=== PATIENT | female | born 1955 | race Caucasian/White ===

== ENCOUNTER → 2023-09-03 14:46 | Outpatient (REF) | payer OTHER, SELFPAY | LOC: PAVMRI 14:46 | PROVIDERS: ATTENDING PHYSICIAN Physician Assistant; FAMILY PHYSICIAN Internal Medicine | DX: M25.551 Pain in right hip (principal); M54.50 Low back pain, unspecified | CPT/HCPCS: 72148; 73721 ==

== ENCOUNTER → 2024-06-28 06:48 | Outpatient (REF) | payer OTHER, SELFPAY | LOC: PAVMRI 06:48 | PROVIDERS: ATTENDING PHYSICIAN Physician Assistant; FAMILY PHYSICIAN Internal Medicine; REFERRING PHYSICIAN Physician Assistant Medical | DX: M25.561 Pain in right knee (principal) | CPT/HCPCS: 72148; 73721 ==

== ENCOUNTER 2024-12-15 06:29 | Day surgery (SDC) | payer OTHER, SELFPAY ==
[2024-12-02 08:58] LABS: Hematocrit 37.2 % (37.0-47.0); Hemoglobin 12.5 g/dL (12.0-16.0); Mean Corp Hgb Conc. 33.6 g/dL (33.0-37.0); Mean Corpuscular Hgb 30.9 pg (27.0-31.0); Mean Corpuscular Volume 92.1 fL (81.0-99.0); Mean Platelet Volume 11.1 fL (7.4-10.4); Platelet Count 363 10^3/uL (130-400); Red Blood Cell Count 4.04 10^6/uL (4.20-5.40); Red Cell Dist. Width 13.5 % (11.5-14.5); White Blood Cell Count 6.8 10^3/uL (4.8-10.8)
[2024-12-02 13:21] VITALS: BMI 24.2
[2024-12-15] VITALS (7 sets, daily range): BP systolic 109–133; BP diastolic 55–78; BMI 24.2
[2024-12-15] MEDS: NORMOSOL-R/PLASMALYTE-A 1000 IV (12:45)
== END 2024-12-15 18:19 | disposition home or self-care (01) ==
LOC: SDS 06:29
PROVIDERS: ATTENDING PHYSICIAN Otolaryngology; FAMILY PHYSICIAN Internal Medicine
DX: J32.4 Chronic pansinusitis (principal)
CPT/HCPCS: 31267; 31254; 31276; 88304; 88311; 36415; 85027; 87070; 87075; 87147; 87205; 93005